=== PATIENT | female | born 1950 | race Caucasian/White ===

== ENCOUNTER 2018-10-11 05:46 | Observation (INO) | payer MEDICARE, BC ==
[2018-10-11] MEDS ORDERED: LACTATED RINGER'S 1,000 ML IV* (06:00)
[2018-10-11] MEDS: CEFAZOLIN 2 GM/50 ML (PMX) 50 ML IVPB (06:16)
[2018-10-11] MEDS ORDERED: PROPOFOL 20 ML (07:04)
[2018-10-11] MEDS ORDERED: ROCURONIUM 50 MG INJ (07:04)
[2018-10-11] MEDS ORDERED: MIDAZOLAM 1 MG/ML 2 ML INJ (07:04)
[2018-10-11] MEDS ORDERED: METOCLOPRAMIDE 10 MG INJ (07:15)
[2018-10-11] MEDS ORDERED: ONDANSETRON 4 MG INJ (07:15)
[2018-10-11] MEDS ORDERED: DEXAMETHASONE 4 MG/ML 5 ML INJ (07:15)
[2018-10-11] MEDS ORDERED: PHENYLephrine (100 MCG/ML) 5ML SYG (07:17)
[2018-10-11] MEDS: BUPIVACAINE 0.25% (MPF) 30 ML INJ (08:02)
[2018-10-11] MEDS: POLYMYXIN/BACITRACIN 1L IRRIG (08:03)
[2018-10-11] MEDS ORDERED: HETASTARCH 6% NACL 500 ML (08:16)
[2018-10-11] MEDS ORDERED: NEOSTIGMINE 10 MG INJ (08:20)
[2018-10-11] MEDS ORDERED: GLYCOPYRROLATE 0.4 MG INJ (08:20)
[2018-10-11] MEDS: THROMBIN (BOVINE) 5,000 UNIT VIAL TP (08:55)
[2018-10-11] MEDS: GELATIN SIZE 100 SPONGE (09:27)
[2018-10-11] MEDS ORDERED: hydrALAzine 20 MG INJ IV (09:30)
[2018-10-11] MEDS ORDERED: LABETALOL HCL 20MG INJ IV (09:30)
[2018-10-11] MEDS ORDERED: MEPERIDINE 25 MG INJ IV (09:30)
[2018-10-11] MEDS ORDERED: OXYCODONE/ACETAMINOPHEN (5/325) TAB PO ×2 (09:30)
[2018-10-11] MEDS ORDERED: HYDROmorphONE 1 MG/5 ML IV SYRINGE IV ×2 (09:30)
[2018-10-11] MEDS ORDERED: METOCLOPRAMIDE 10 MG INJ IV (09:30)
[2018-10-11] MEDS ORDERED: DIPHENHYDRAMINE 50 MG INJ IV (09:30)
[2018-10-11] MEDS ORDERED: FENTAnyl 50 MCG/ML VIAL IV ×2 (09:30)
[2018-10-11] MEDS ORDERED: ALPRAZOLAM 0.25 MG TAB PO (09:30)
[2018-10-11] MEDS ORDERED: ALBUTEROL 0.083% (NEB) 2.5 MG/3 ML AMP HHN (09:30)
[2018-10-11] MEDS ORDERED: PROCHLORPERAZINE 10 MG TAB PO (10:00)
[2018-10-11] MEDS ORDERED: NALOXONE (0.4 MG/ML) INJ IV (10:00)
[2018-10-11] MEDS ORDERED: BETHANECHOL 25 MG TAB PO (10:00)
[2018-10-11] MEDS ORDERED: DIPHENHYDRAMINE 50 MG CAP PO (10:00)
[2018-10-11] MEDS ORDERED: NACL 0.9% 3 ML SYG IV (10:00)
[2018-10-11] MEDS ORDERED: HYDROCODONE/APAP (5/325) TAB PO ×2 (10:00)
[2018-10-11] MEDS ORDERED: DIAZEPAM 5 MG TAB PO (10:00)
[2018-10-11] MEDS ORDERED: TRIMETHOBENZAMIDE 100 MG/ML VIAL IM (10:00)
[2018-10-11] MEDS ORDERED: DIAZEPAM 5 MG/ML SYG IM (10:00)
[2018-10-11] MEDS ORDERED: ZOLPIDEM 5 MG TAB PO (10:00)
[2018-10-11] MEDS: FENTAnyl 50 MCG/ML VIAL IV (10:05)
[2018-10-11] MEDS: ONDANSETRON 4 MG INJ IV ×2 (10:05→19:51)
[2018-10-11] MEDS: HYDROmorphONE 1 MG/5 ML IV SYRINGE IV (10:06)
[2018-10-11] MEDS: HYDROmorphONE 0.2 MG/ML PCA IV (10:09)
[2018-10-11] MEDS ORDERED: EPHEDrine 50 MG INJ (10:38)
[2018-10-11] MEDS: EPHEDrine SULFATE 50 MG/5 ML SYG IV (11:05)
[2018-10-11] MEDS: DEXTROSE 5%-0.45% NACL 1,000 ML IV ×2 (14:44→20:00)
[2018-10-11] MEDS: CEFAZOLIN 1 GM/50 ML (PMX) 50 ML IVPB ×2 (14:44→19:08)
[2018-10-11] MEDS: POLYETHYLENE GLYCOL 17 GM PACKET PO (19:08)
[2018-10-11] MEDS: LACTOBACILLUS RHAMNOSUS CAP PO (21:40)
[2018-10-11] MEDS: RANITIDINE 150 MG TAB PO (21:40)
[2018-10-11] MEDS: ATORVASTATIN 20 MG TAB PO (21:40)
[2018-10-11] MEDS: DOCUSATE SODIUM 100 MG CAP PO (21:40)
[2018-10-11] MEDS: ALPRAZOLAM 0.5 MG TAB PO (23:18)
[2018-10-12] MEDS: CEFAZOLIN 1 GM/50 ML (PMX) 50 ML IVPB ×2 (00:11→06:11)
[2018-10-12] MEDS: DEXTROSE 5%-0.45% NACL 1,000 ML IV (01:56)
[2018-10-12 05:42] LABS: HEMATOCRIT 31.7 % (37.0-47.0); HEMOGLOBIN 10.1 g/dl (12.0-16.0)
[2018-10-12 06:20] LABS: ANION GAP 4 (5-13); BLOOD UREA NITROGEN 10 mg/dl (7-20); CALCIUM 8.5 mg/dl (8.4-10.2); CARBON DIOXIDE 26 mmol/L (21-31); CHLORIDE 108 mmol/L (97-110); CREATININE 0.59 mg/dl (0.44-1.00); Estimated GFR > 60 mL/min (>60); GLUCOSE 114 mg/dl (70-220); POTASSIUM 4.1 mmol/L (3.5-5.1); SODIUM 138 mmol/L (135-144)
[2018-10-12] MEDS: RANITIDINE 150 MG TAB PO ×2 (08:48→20:52)
[2018-10-12] MEDS: ACETAMINOPHEN 325 MG TAB PO ×2 (08:48→17:14)
[2018-10-12] MEDS: ASCORBIC ACID 500 MG TAB PO ×2 (08:48→20:53)
[2018-10-12] MEDS: FERROUS SULFATE (EC) 325 MG TAB PO ×3 (08:49→20:53)
[2018-10-12] MEDS: DOCUSATE SODIUM 100 MG CAP PO ×3 (08:49→20:52)
[2018-10-12] MEDS: BETHANECHOL 25 MG TAB PO (08:49)
[2018-10-12] MEDS ORDERED: ASPIRIN 81 MG TAB PO (09:00)
[2018-10-12 10:11] LABS: ADD UMIC NO; UR ASCORBIC ACID NEGATIVE (NEGATIVE); UR BILIRUBIN (Dip) NEGATIVE (NEGATIVE); UR BLOOD (Dip) NEGATIVE (NEGATIVE); UR CLARITY CLEAR (CLEAR); UR COLOR STRAW (YELLOW); UR GLUCOSE (Dip) NEGATIVE (NEGATIVE); UR KETONES (Dip) NEGATIVE (NEGATIVE); UR LEUKOCYTE ESTERASE (Dip) NEGATIVE Leu/ul (NEGATIVE); UR NITRITE (Dip) NEGATIVE (NEGATIVE); UR SPECIFIC GRAVITY (Dip) 1.014 (1.003-1.030); UR TOTAL PROTEIN (Dip) NEGATIVE (NEGATIVE); UR UROBILINOGEN (Dip) NEGATIVE (NEGATIVE)
[2018-10-12] MEDS ORDERED: HYDROCODONE/APAP (5/325) TAB PO (10:30)
[2018-10-12] MEDS: METHYLNALTREXONE 12 MG/0.6 ML VIAL SC (11:02)
[2018-10-12] MEDS: HYDROCODONE/APAP (5/325) TAB PO ×2 (11:09→21:00)
[2018-10-12] MEDS: POLYETHYLENE GLYCOL 17 GM PACKET PO (18:22)
[2018-10-12] MEDS: LACTOBACILLUS RHAMNOSUS CAP PO (20:53)
[2018-10-12] MEDS: ATORVASTATIN 20 MG TAB PO (20:53)
[2018-10-12] MEDS: CEPASTAT LOZENGE MT (20:56)
[2018-10-12] MEDS: ALPRAZOLAM 0.5 MG TAB PO (23:39)
[2018-10-13] MEDS: AL HYDROX/MG HYDROX/SIMETH 30 ML CUP PO (06:44)
[2018-10-13] MEDS: ACETAMINOPHEN 325 MG TAB PO (06:47)
[2018-10-13] MEDS: DOCUSATE SODIUM 100 MG CAP PO (08:55)
[2018-10-13] MEDS: ASCORBIC ACID 500 MG TAB PO (08:55)
[2018-10-13] MEDS: RANITIDINE 150 MG TAB PO (08:55)
[2018-10-13] MEDS: BISACODYL 10 MG SUPP PR (08:55)
[2018-10-13] MEDS: FERROUS SULFATE (EC) 325 MG TAB PO (09:00)
[2018-10-13] MEDS: NA PHOSPHATE/BIPHOS 133 ML ENEMA PR (09:44)
[2018-10-13] MEDS: METHYLNALTREXONE 12 MG/0.6 ML VIAL SC (11:22)
== END 2018-10-13 13:00 | disposition home or self-care (01) ==
LOC: REC 05:46 → MS1 11:14
DX: M48.061 Spinal stenosis, lumbar region without neurogenic claudication (principal); M54.16 Radiculopathy, lumbar region; E78.00 Pure hypercholesterolemia, unspecified; K59.00 Constipation, unspecified; G47.00 Insomnia, unspecified; Z86.718 Personal history of other venous thrombosis and embolism
CPT/HCPCS: 63047; 72020; 80048; 81003; 85014; 85018; 86850; 86900; 86901; 86920; 87086; 88304; 88311; 97116; 97162; 97530; 99217